=== PATIENT | male | born 1985 | race Two or more races ===

== ENCOUNTER 2021-10-22 19:12 | Emergency (ER) | payer MEDICAID, OTHER ==
[~2021-10-22] VITALS: Ht 165.1 cm; Wt 112.0 kg
[2021-10-22 19:20] VITALS: BP 147/98
[2021-10-22 22:27] LABS: Urine Bacteria NONE SEEN /hpf (None Seen); Urine Blood Negative /uL (Negative); Urine Specific Gravity 1.021 (1.001-1.035); Urine WBC 1 /hpf (0 - 3)
== END 2021-10-23 03:51 | disposition left against medical advice (07) ==
LOC: ER 19:12 → EDSEX 19:12 → ER 10-23 03:51
DX: F41.9 Anxiety disorder, unspecified (principal); R42 Dizziness and giddiness; Z53.21 Procedure and treatment not carried out due to patient leaving prior to being seen by health care provider
CPT/HCPCS: 81001